=== PATIENT | male | born 1990 | race Caucasian/White ===

== ENCOUNTER 2018-10-30 10:46 | Emergency (ER) | payer SELFPAY ==
[2018-10-30 10:59] VITALS: BP 152/108; TEMP 96.2; O2SAT 99
--- NOTE | 2018-10-30 11:33 | ED.PDOC ---
History of Present Illness - General Chief Complaint: ENT Problem Stated Complaint: sore throat,chills,fatigue Time Seen by Provider: 10/30/18 11:01 Source: patient Exam Limitations: no limitations - History of Present Illness Initial Comments: Patient presents with a general feeling of malaise for several days. He woke up with a sore throat this morning. He has had clear rhinorrhea as well. No coughing. This morning he vomited three times. No other complaints. He lives at [facility] and has been around numberous ill individuals. Timing/Duration: 4-6 hours Severity: mild Improving Factors: nothing Worsening Factors: nothing Associated Symptoms: other - as in HPI Allergies/Adverse Reactions: Allergies NO KNOWN ALLERGY Allergy (Verified 10/30/18 10:59) Home Medications: Ambulatory Orders Gabapentin 300 mg PO DAILY 10/30/18 Ondansetron [Zofran Odt] 4 mg PO Q6HRS #10 tab 10/30/18 Review of Systems - Review of Systems Constitutional: States: see HPI EENTM: States: see HPI Respiratory: States: no symptoms reported Cardiology: States: no symptoms reported Gastrointestinal/Abdominal: States: see HPI Genitourinary: States: no symptoms reported Musculoskeletal: States: no symptoms reported Skin: States: no symptoms reported Neurological: States: no symptoms reported Endocrine: States: no symptoms reported Hematologic/Lymphatic: States: no symptoms reported Past Medical History (General) - Patient Medical History Hx Stroke: No Hx Congestive Heart Failure: No Hx Diabetes: No Surgical History: no surgical history - Vaccination History Hx Influenza Vaccination: Yes - Social History Hx Tobacco Use: Yes Family Medical History - Family History Father Family History: Unknown Living Status: Unknown Physical Exam - Physical Exam General Appearance: Alert Eye Exam: bilateral normal Ears, Nose, Throat: normal pharynx, other - clear nasal discharge, left anterior cervical LAD, soft, mobile, fluctuant, NTTP. less than 1 cm. No sinus tenderness Neck: non-tender, full range of motion, supple, lymphadenopathy (L) Respiratory: lungs clear, normal breath sounds Cardiovascular/Chest: normal peripheral pulses, regular rate, rhythm Gastrointestinal/Abdominal: normal bowel sounds, non tender, soft Progress - Progress Progress: 10/30/18 11:33 Rapid strep negative. Influenza negative. Likely URI with associated nausea due to nasal drainage. Have given RX for zofran. Care instructions given. E.R. warnings given. Questions were elicited and answered. Patient voiced understanding and agreement with the plan. Departure - Departure Clinical Impression: Upper respiratory infection Disposition: Discharge to Home or Self Care Condition: Good Departure Forms: ED Discharge - Pt. Copy, Patient Portal Self Enrollment Diet: resume usual diet Activity: increase activity as tolerated Referrals: John May MD [Primary Care Provider] - 1-2 Weeks Prescriptions: Ondansetron [Zofran Odt] 4 mg PO Q6HRS #10 tab Home Medications: Ambulatory Orders Gabapentin 300 mg PO DAILY 10/30/18 Ondansetron [Zofran Odt] 4 mg PO Q6HRS #10 tab 10/30/18 Additional Instructions: Take nausea medications if needed. Increase oral fluids. You may take over the counter cough and cold medications as directed if needed. Return to the E.R. for temperature above 100.4 or if nausea and vomiting continues for more than 48 hours. You may use Immodium AD as directed if you develop diarrhea.
== END 2018-10-30 11:40 | disposition home or self-care (01) ==
LOC: ER 10:46
DX: J06.9 Acute upper respiratory infection, unspecified (principal); R11.10 Vomiting, unspecified; Z87.891 Personal history of nicotine dependence